=== PATIENT | male | born 1965 | race Caucasian/White ===

== ENCOUNTER 2017-05-04 20:05 | Emergency (ER) | payer BC, OTHER ==
[2017-05-04 20:36] LABS: Hematocrit 41.5 % (42.0-52.0); Hemoglobin 14.5 gm/dL (13.5-18.0); Mean Cell Volume 85.2 fl (78-100); Mean Corpuscular Hemoglobin 29.8 pg (27-31); Mean Corpuscular Hgb Conc 34.9 g/dl (32-36); Mean Platelet Volume 11.3 fl (6.0-9.5); Neutrophil # 4.2 K/mm3 (1.3-6.0); Neutrophil % 60.5 % (42-75.0); Platelet Count 187 K/mm3 (150-450); Red Blood Count 4.87 M/mm3 (4.7-6.0); Red Cell Distribution Width 12.7 % (11.5-14.0)
[2017-05-04 20:40] LABS: Urine Bilirubin Negative (NEGATIVE); Urine Blood Negative /ul (NEGATIVE); Urine Ketone Negative (NEGATIVE); Urine Nitrite Negative (NEGATIVE); Urine Protein Negative (NEGATIVE); Urine Urobilinogen Normal (NORMAL)
[2017-05-04 20:49] LABS: Albumin * 3.7 gm/dl (3.4-5.0); Anion Gap 13.8 mmol/L (6.8-13.8); BUN/Creatinine Ratio 13.6 (9.0-21.6); Bilirubin, Total 0.5 mg/dL (0.0-1.1); Ca. Corrected For Albumin 8.9 mg/dL (8.4-10.2); Carbon Dioxide 28.1 mmol/L (24-32.6); Potassium 3.9 mmol/L (3.4-4.6); Total Protein 7.3 gm/dL (6.2-8.2)
[2017-05-04 20:55] LABS: Urine Appearance Clear; Urine Color Yellow; Urine RBC None Seen /hpf (0-5)
--- OUTSIDE RECORDS SUMMARY | 2017-05-04 20:55 | XMS REPORT | Clinical Summary ---
:1965 Author Organization [employer] [place] [address] Care Team Providers Name Role Phone Unavailable Primary Care Provider Unavailable Source Comments This disclosure is being made pursuant to the [employer] program and maynot contain all information available regarding this patient.[facility] Allergies Active Allergy Reactions Severity Noted Date Comments Penicillins Hives High 01/19/2015 Current Medications Be aware that medications may not be up to date as of this document. Alwaysverify current medications with the patient. Prescription Sig. Disp. Refills Start Date End Date Status METFORMIN HCL PO Take by mouth. Active Active Problems Not on file Social History Tobacco Use Types Packs/Day Years Used Date Never Smoker Smokeless Tobacco: Never Used Alcohol Use Drinks/Week oz/Week Comments Yes social Sex Assigned at Date Recorded Not on file Last Filed Vital Signs Vital Sign Reading Time Taken Blood Pressure 160/107 01/19/2015 4:01 PM CDT Pulse 90 01/19/2015 4:01 PM CDT Temperature 36.4 C (97.5 F) 01/19/2015 3:38 PM CDT Respiratory Rate 16 01/19/2015 4:01 PM CDT Oxygen Saturation 97% 01/19/2015 4:01 PM CDT Inhaled Oxygen Concentration - - Weight 88.9 kg (196 lb) 01/19/2015 3:38 PM CDT Height 193 cm (6' 3.98") 01/19/2015 3:38 PM CDT Body Mass Index 23.87 01/19/2015 3:38 PM CDT Plan of Treatment Health Maintenance Due Date Last Done Comments Tetanus/Pertussis (1 - Tdap) 1985 Colonoscopy 2016 Well Adult Visit 2016 INFLUENZA IMMUNIZATION (#1) 2016 Results Not on filefrom Last 3 Months Insurance Payer Benefit Plan / Subscriber ID Type Phone Address Group WORK[employer] WORKERS [id number] COMPENSATION COMPENSATION JOHN ESTRADA PPO [id number] PPO [phone] [id number] [facility] [address] [place] [address] [facility] [employer] Workers Comp Self Home: [address] [employer] [phone] [place] [address]
[2017-05-04 20:56] LABS: Urine Bacteria TRACE; Urine WBC None Seen /hpf (0-5)
[2017-05-04] MEDS ORDERED: INSULIN REGULAR, HUMAN 100 UNITS/ML VIAL SC ONE ×2 (20:57→22:07)
--- NOTE | 2017-05-04 20:58 | ERNOTE ---
Medical Problem HPI - Narrative Date of Service: 05/04/17 - General Chief Complaint: Diabetes Related Problem Source: patient, family - Immun/Allergies/Home Medications Immunizations: IMMUNIZATION HX Immunizations Up to Date Yes History of Influenza Vaccine No Hx Pneumococcal Vaccination No Allergies/Adverse Reactions: Allergies penicillin V Adverse Reaction (Verified 03/27/16 15:55) Home Medications: HOME MEDICATIONS Acetaminophen [Tylenol] 650 mg PO QID PRN 05/04/17 [Last Taken Unknown] Aspirin 81 mg PO DAILY 05/04/17 [Last Taken Unknown] Atorvastatin Calcium 80 mg PO DAILY 05/04/17 [Last Taken Unknown] Ibuprofen 200 - 400 mg PO QID 05/04/17 [Last Taken Unknown] Insulin Glargine,Hum.rec.anlog [Lantus] 16 units SC DAILY 05/04/17 [Last Taken Unknown] Lisinopril [Prinivil] 10 mg PO DAILY 05/04/17 [Last Taken Unknown] Metoprolol Tartrate [Lopressor] 25 mg PO BID 05/04/17 [Last Taken Unknown] - History of Present History Narrative: 52 year old that was diagnosed with CVA last week and was released from a hospital in [place] yesterday. He has had residual hemiparesis, and dizziness since the CVA. He was prompted to come to the ED tonight due to an elevated glucose level, which has been running in the 300's; the last reading was 308. Complaints of chills, but this has been unchanged since the CVA. Denies any coughing, shortness of breath, chest pain, N/V/D. While in being hospitalized he was started a Lantus. Timing: constant Severity: mild Modifying Factors - (Worsens): Present: other - none Review of Systems - Review of Systems Constitutional: Present: chills - chronic since CVA EYE: Present: see HPI ENT: Present: no symptoms reported Respiratory: Present: no symptoms reported Cardiology: Present: no symptoms reported Gastrointestinal/Abdominal: Present: nausea - occasional since CVA Genitourinary: Present: no symptoms reported Musculoskeletal: Present: no symptoms reported Skin: Present: no symptoms reported Neurological: Present: See HPI Endocrine: Present: no symptoms reported Hematologic/Lymphatic: Present: no symptoms reported Psych: Present: no symptoms reported - Patient's Past Medical History Patient History - Medical: Diabetes Type 2 Patient History - Cardiac/Respiratory: CVA/Stroke Patient History - Cancer: No Hx of Cancer Patient History - Surgical Procedures: Other Patient History - Other: None - Family History Mother Family History - Medical: Diabetes Type 2 Family History - Cardiac/Respiratory: Coronary Heart Disease - Social History Living Situations: home Psych History: No pertinent hx Smoking Status: Never smoker Have you smoked in the past 12 months: No Do you dip or chew tobacco: No Alcohol Use: occasionally Drug Use: none - Immunizations Immunizations Up to Date: Yes Hx Pneumococcal Vaccination: No History of Influenza Vaccine: No Physical Exam - Physical Exam General Appearance: Present: no apparent distress Head Exam: Present: normal inspection Eye Exam: Normal inspection: bilateral Ears, Nose, Throat: Present: normal ENT inspection Neck: Present: normal inspection Respiratory: Present: no respiratory distress Cardiovascular/Chest: Present: regular rate, rhythm Gastrointestinal/Abdominal: Present: nontender Back Exam: Present: normal inspection Extremity Exam: Present: normal inspection Neurological Exam: Present: other - mildly unsteady gait Skin Exam: Present: normal color ED Progress - Results and Orders Patient's Lab Results:: I have reviewed the patient's lab results. - Vital Signs Patient's Vital Signs:: I have reviewed the patient's vital signs. Vital Signs: Vital Signs 05/04/17 05/04/17 05/04/17 20:06 20:16 20:32 Temperature 37.1 C Pulse Rate 78 79 80 Respiratory 16 12 Rate Blood Pressure 170/92 148/83 O2 Sat by Pulse 100 100 Oximetry - Progress/Reassessment Chief Complaint: Diabetes Related Problem Progress:: Improved Departure - Departure Clinical Impression: Diabetes Disposition: Home self-care Condition: Fair Instructions: Insulin Treatment for Diabetes Print Language: Chinese Additional Instructions: Increase your Lantus dose to 18 units per day. Follow up with your physician to continue to fine tune your insulin dosage. Return to the ED if you feel sick, have fevers or extreme thirst.
[2017-05-04] MEDS ORDERED: INSULIN REGULAR, HUMAN 100 UNITS/ML VIAL ONE (21:03)
[2017-05-04 23:07] VITALS: BP 131/89
== END 2017-05-04 22:47 | disposition home or self-care (01) ==
LOC: ER 20:05
DX: E11.9 Type 2 diabetes mellitus without complications (principal); Z79.4 Long term (current) use of insulin

== ENCOUNTER 2020-12-31 21:25 | Inpatient (IN) ==
[2020-12-31] MEDS ORDERED: NITROGLYCERIN 0.4 MG/TAB BTL SL ONE ×3 (21:37→21:46)
[2020-12-31] MEDS ORDERED: ASPIRIN 81 MG TAB.CHEW ONE (21:37)
[2020-12-31] MEDS ORDERED: NORMAL SALINE 500 ML IV ONE (21:40)
[2020-12-31] MEDS ORDERED: ASPIRIN 81 MG TAB.CHEW PO ONE (21:41)
[2020-12-31 21:47] LABS: Hematocrit 40.2 % (42.0-52.0); Hemoglobin 13.2 gm/dL (13.5-18.0); Mean Cell Volume 95.5 fl (78-100); Mean Corpuscular Hemoglobin 31.4 pg (27-31); Mean Corpuscular Hgb Conc 32.8 g/dl (32-36); Neutrophil # 4.9 K/mm3 (1.3-6.0); Neutrophil % 57.7 % (42-75.0); Platelet Count 229 K/mm3 (150-450); Red Blood Count 4.21 M/mm3 (4.7-6.0); Red Cell Distribution Width 13.4 % (11.5-14.0); White Blood Count 8.5 K/mm3 (4.0-10.5)
[2020-12-31] MEDS ORDERED: ALBUTEROL SULFATE/IPRATROPIUM 3 ML NEBU IH ONE (21:59)
[2020-12-31 22:02] LABS: INR 1.12 INR (0.92-1.08); Partial Thrombolplastin Time 27.5 Seconds (24-32); Prothrombin Time (Patient) 11.6 Seconds (9.1-10.7)
[2020-12-31 22:07] LABS: ALT 35 U/L (19-67); Albumin * 3.5 gm/dl (3.4-5.0); Alkaline Phosphatase * 124 U/L (50-170); Anion Gap 20.3 mmol/L (6.8-13.8); BUN/Creatinine Ratio 7.3 (9.0-21.6); Bilirubin, Total 1.2 mg/dL (0.0-1.1); Blood Urea Nitrogen 11 mg/dL (6-23); Ca. Corrected For Albumin 8.4 mg/dL (8.4-10.2); Calcium * 8.3 mg/dL (7.9-10.9); Carbon Dioxide 16.9 mmol/L (24-32.6); Chloride 85 mmol/L (97-106); Glucose * 429 mg/dL (70-110); Potassium 4.2 mmol/L (3.4-4.6)
[2020-12-31 22:18] LABS: Sodium 118 mmol/L (132-142); Troponin I 0.069 ng/mL (0.00-0.10)
[2020-12-31] MEDS ORDERED: PANTOPRAZOLE SODIUM 40 MG/100 ML PIGGYBACK IV ONE (22:36)
--- NOTE | 2020-12-31 22:36 | ERNOTE ---
Dyspnea - Date Date of Service: 12/31/20 - General Presenting Symptoms: shortness of breath, difficulty of breathing, wheezing Time Seen by Provider: 12/31/20 22:18 Source: patient, family Exam Limitations: no limitations - Immun/Allergies/Home Medications Immunizations: IMMUNIZATION HX Immunizations Up to Date Yes History of Influenza Vaccine No Hx Pneumococcal Vaccination No Allergies/Adverse Reactions: Allergies penicillin V Adverse Reaction (Unknown, Verified 12/31/20 21:26) unknown Home Medications: HOME MEDICATIONS Acetaminophen [Tylenol] 650 mg PO QID PRN 05/04/17 [Last Taken Unknown] Ibuprofen 200 - 400 mg PO QID 05/04/17 [Last Taken Unknown] alcohol swabs See Rx Instructions TP .COMPLEX #200 ea 05/21/18 [Last Taken Unknown] aspirin 81 mg chewable tablet 81 mg PO DAILY #90 tab 05/21/18 [Last Taken Unknown] blood-glucose meter See Dose Instructions .ROUTE .MEDSUPPLY #1 ea 05/21/18 [Last Taken Unknown] lancets 28 gauge See Dose Instructions .ROUTE .MEDSUPPLY #200 ea 05/21/18 [Last Taken Unknown] insulin glargine 100 unit/mL subcutaneous solution 15 unit SUBCUT DAILY #10 ml 04/17/20 [Last Taken Unknown] metformin 500 mg tablet 500 mg PO DAILY #180 tab 04/20/20 [Last Taken Unknown] Naproxen Sodium 550 mg PO BID #30 tab 06/11/20 [Last Taken Unknown] metoprolol tartrate 25 mg tablet 25 mg PO BID #180 tab 08/10/20 [Last Taken Unknown] blood sugar diagnostic See Rx Instructions .ROUTE .COMPLEX #100 unknown measurement unit code: strip 11/04/20 [Last Taken Unknown] lisinopril 10 mg tablet 10 mg PO DAILY #90 tab 11/04/20 [Last Taken Unknown] atorvastatin 10 mg tablet 10 mg PO DAILY #90 tab 12/16/20 [Last Taken Unknown] gabapentin 400 mg capsule 400 mg PO TID #180 cap 12/16/20 [Last Taken Unknown] insulin syringe-needle U-100 1 mL 31 gauge x 5/16" See Dose Instructions .ROUTE .MEDSUPPLY #100 ea 12/16/20 [Last Taken Unknown] silver sulfadiazine 1 % topical cream 1 applic TP DAILY #25 g 12/28/20 [Last Taken Unknown] - Pain Score Pain Score #1 Pain Score: 6 - History of Present Illness Narrative: Patient is 55-year-old male present to our emergency room accompanied by his significant other ambulatory with chief complaint of acute shortness of breath, difficulty breathing, left-sided chest pain started about couple hours ago. Patient past medical history significant for unspecified controlled diabetes, severe alcoholism, protein calorie malnutrition, history of CVA about 4 years ago with no intervention other than angiography. Patient currently takes Metformin and uses insulin for diabetes. Patient does not remember the last hemoglobin A1c and last blood sugar check was this morning 82 per patient. Patient reports about 2 hours ago he was in bar with his significant other but did not drink any alcoholic beverages. He reports that he usually drinks about 12-18 tall boy beers. He considers himself as an alcoholic. He gets home after doing some groceries with his and suddenly started having some left upper chest pain which reports the pain intensity about 6 or 7 out of 10 and the pattern is sharp pain. Patient pain does not radiate to back or jaw or the left upper extremity. Patient denies any nausea vomiting vision change headache. Patient reports some dizziness. Patient reports that he did not have any contact with any Covid positive patients and has not been diagnosed with any up respiratory infection last 2 weeks. Patient reports the breathing got significantly deteriorated in the last 2 hours and started having some cough with some yellowish-greenish discharges. Patient saturation at the time of being seen was 73% in room air patient was gasping for air and coarse crackles all over the lung space. Initial critical care done by nursing staff and patient significantly stabilized after about 5 minutes. Patient is on 6 L of oxygen. EKG done, ACS protocol initiated and patient received aspirin and sublingual nitro. Patient reports the pain intensity came down after second dose of nitro to 2 out of 10. Chest x-ray has been done and EKG visualized and the report by ED provider. EKG did not show any ST-T changes but random PVCs with ventricular block patient had junctional tachycardia and left bundle branch block previously. Other than tachycardia there is no other finding. Chest x-ray reported by ED doctor. Patient has generalized opacities with mild bilateral costophrenic haziness in favor of pleural effusion. Patient cardiac silhouette is normal patient does not have any tracheal deviation. The findings are in favor of severe pneumonia most likely COVID-19. 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 Diabetes Onset Date: ~2007 Hyperlipidemia Onset Date: ~2013 LDL-115 Hypertension Onset Date: Unknown Rib lesion Onset Date: Unknown with pain Subluxation of shoulder joint Onset Date: ~03/20/17 Dislocation of right shoulder 1984 Surgical History: Surgical History (Last Reviewed 12/31/20 @ 21:35 by Remedios Orona RN) History of hip surgery Onset Date: ~2003 Right hip "pinning", Dr Banks H/O knee surgery Onset Date: ~1983 Left H/O shoulder surgery Onset Date: ~1984 Right shoulder Hematoma Onset Date: ~2003 Patient states he fell through a roof and developed a hematoma in his right upper leg that he ended up having surgery on with Dr Licea at [facility] to "relieve pressure". He states that he saw the wound clinic for packing and hyperbaric treatment post-op S/P wrist surgery Onset Date: ~1987 Left wrist [facility] Family History: Family History (Last Reviewed 12/31/20 @ 21:35 by Remedios Orona RN) Father , age 93, septicemia No problems noted. Mother , age 70 Diabetes Heart problem Social History: (Last Updated 12/31/20 @ 21:35 by Remedios Ornoa RN) Social History: Marital status: lives independently: No household members: spouse current occupational status: employed current occupation: foundry laborer [employer] Service: No Tobacco: Smoking Status: Never smoker Alcohol: alcohol intake: current Alcohol type: beer alcohol intake frequency: 3 or more drinks per day Substance Use: substance use type: does not use Dietary Habits: caffeine: Yes Physical Exam - Physical Exam General Appearance: Present: wd/wn, alert, severe distress, thin Head Exam: Present: normal inspection, no evidence of injury Eye Exam: Normal inspection: bilateral, PERRL: bilateral, EOMI: bilateral Ears, Nose, Throat: Present: normal ENT inspection, normal pharynx Neck: Present: normal inspection, nontender Respiratory: Present: chest tenderness, respiratory distress, accessory muscle use, crackles, rhonchi - Patient has generalized bilateral coarse crackles all over the lungs.. Absent: no respiratory distress, normal breath sounds, no accessory muscle use, chest nontender, lungs clear, decreased breath sounds, expiration (prolonged) Cardiovascular/Chest: Present: normal peripheral pulses - Patient does not have any asymmetry in peripheral pulses., tachycardia Peripheral Pulses: N=norm/S=strong/W=weak/B=bound/A=absent: Carotid (R): Normal, Carotid (L): Normal, Radial (R): Normal, Radial (L): Normal, Femoral (R): Normal, Femoral (L): Normal, Dorsalis-pedis (R): Normal, Dorsalis-pedis (L): Normal Gastrointestinal/Abdominal: Present: normal bowel sounds, nontender, nondistended, soft, no organomegaly Extremity Exam: Present: normal inspection, non-tender, normal range of motion, no edema Neurological Exam: Present: alert, oriented, normal mood/affect, no m otor/sensory deficits Skin Exam: Present: cool/dry, pallor Lymphatic Exam: Present: no adenopathy Progress - Date and Time Seen: Date and Time: 12/31/20 22:34 Patient evaluated after initial critical care. Patient significantly improved heart rate came down from 148 205, respiratory rate came down from 48-18, saturation came down up from 91 in 6 L of oxygen to 95. Severity of the case discussed with the patient and significant other they both verbalized understanding agreed to the plan Asked questions about patient's CODE STATUS patient will be full code patient per patient request We got critical results back for sodium 118 we are starting algorithm and protocol for hyponatremia as patient is symptomatic. Starting infusion of bolus 100 cc of 3% saline and will check sodium in 1 hour. 12/31/20 23:11 I corrected sodium based on the glucose and a corrected to 123. Patient will receive 50 cc instead of 100 cc of 3% saline. We will recheck the sodium at midnight 12/31/20 23:49 Patient did stabilize significantly vitals are regular normal limits patient is resting comfortably. Patient will be admitted for acute respiratory failure due to acute pneumonia and moderate hyponatremia - Vital Signs Vital Signs: Vital Signs 12/31/20 21:25 12/31/20 21:48 12/31/20 21:49 Temperature 35.7 C L Pulse Rate 144 H 127 H 126 H Respiratory Rate 37 H 37 H Blood Pressure 168/105 H 167/107 H O2 Sat by Pulse Oximetry 73 L 88 L 12/31/20 22:02 12/31/20 22:07 12/31/20 22:13 Temperature Pulse Rate 124 H 123 H 121 H Respiratory Rate 37 H 30 H 34 H Blood Pressure 143/96 H O2 Sat by Pulse Oximetry 93 93 12/31/20 22:19 Temperature Pulse Rate 116 H Respiratory Rate 35 H Blood Pressure 149/94 H O2 Sat by Pulse Oximetry 94 - Progress/Reassessment Chief Complaint: Dyspnea - Transfer of Care Pending Results: X-ray results - Chest x-ray reported by ED doctor. Patient has generalized opacities with mild bilateral costophrenic haziness in favor of pleural effusion. Patient cardiac silhouette is normal patient does not have any tracheal deviation. Plan - Plan Plan: Admit to the inpatient for acute pneumonia and moderate hyponatremia. Departure Clinical Impression: Acute pneumonia, Acute respiratory failure with hypoxia and hypercapnia, Chronic renal failure, stage 3b, Chronic hyponatremia - Departure Disposition: Still a patient Condition: Stable Referrals: Sandy Pickens MD [Primary Care Provider] -
[2020-12-31] MEDS: SODIUM CHLORIDE 3 % 500 ML IV SCH (22:40)
[2020-12-31 22:41] LABS: AST 37 U/L (0-48); BNP * 2116 pg/mL (5-140); Total Protein 7.2 gm/dL (6.2-8.2)
[2020-12-31 22:53] LABS: Magnesium 1.6 mg/dL (1.2-2.8)
[2020-12-31] MEDS ORDERED: cefTRIAXone SODIUM 1,000 MG/100 ML BAG IV ONE (23:43)
[2020-12-31] MEDS ORDERED: AZITHROMYCIN 250 MG TABLET ONE (23:50)
[2020-12-31] MEDS: AZITHROMYCIN 250 MG TABLET PO SCH (23:52)
[2021-01-01] MEDS: SODIUM CHLORIDE 3 % 500 ML IV SCH (00:04)
[2021-01-01] MEDS ORDERED: SODIUM CHLORIDE 3 % 500 ML IV SCH (00:15)
[2021-01-01] MEDS ORDERED: NORMAL SALINE 1,000 ML IV PRN (01:31)
[2021-01-01 03:49] LABS: Urine Bilirubin Negative (NEGATIVE); Urine Blood Negative /ul (NEGATIVE); Urine Ketone Negative (NEGATIVE); Urine Nitrite Negative (NEGATIVE); Urine Protein Negative (NEGATIVE); Urine Specific Gravity 1.015 SP.GR. (1.005-1.030); Urine Urobilinogen Normal (NORMAL)
[2021-01-01 03:54] LABS: Urine Appearance Clear (CLEAR); Urine Color Yellow
[2021-01-01 03:55] LABS: Urine Bacteria None Seen; Urine RBC None Seen /hpf (0-5); Urine WBC None Seen /hpf (0-5)
[2021-01-01 03:58] LABS: Cocaine Ur Negative (NEGATIVE); Urine Barbiturate Negative (NEGATIVE); Urine Benzodiazepines Negative (NEGATIVE); Urine Opiates Negative (NEGATIVE); Urine PCP Negative (NEGATIVE); Urine THC Negative (NEGATIVE)
[2021-01-01 08:27] LABS: Anion Gap 14.7 mmol/L (6.8-13.8); BUN/Creatinine Ratio 7.7 (9.0-21.6); Calcium * 8.2 mg/dL (7.9-10.9); Carbon Dioxide 23.5 mmol/L (24-32.6); Estimated Creat Clear 88.6; Potassium 4.2 mmol/L (3.4-4.6)
[2021-01-01] MEDS ORDERED: FUROSEMIDE 10 MG/ML VIAL IV ONE (08:43)
[2021-01-01] MEDS ORDERED: MORPHINE SULFATE 2 MG/ML DISP.SYRIN IV ONE (08:48)
[2021-01-01] MEDS ORDERED: INSULIN GLARGINE,HUM.REC.ANLOG 100 UNITS/ML VIAL SC SCH (09:00)
[2021-01-01] MEDS: hydrALAZINE HCL 20 MG/ML VIAL IV PRN (09:33)
[2021-01-01] MEDS: metFORMIN HCL 500 MG TABLET PO SCH (09:50)
[2021-01-01] MEDS: METOPROLOL TARTRATE 25 MG TABLET PO SCH ×2 (09:50→20:55)
[2021-01-01] MEDS: AZITHROMYCIN 250 MG TABLET PO SCH (09:50)
[2021-01-01] MEDS: LISINOPRIL 10 MG TABLET PO SCH (09:50)
[2021-01-01] MEDS: GABAPENTIN 400 MG CAPSULE PO SCH ×3 (09:50→17:22)
[2021-01-01] MEDS: HEPARIN SODIUM,PORCINE 5,000 UNITS/ML VIAL SC SCH ×2 (09:51→20:55)
[2021-01-01] MEDS ORDERED: INSULIN LISPRO 100 UNITS/ML VIAL SC ONE (12:45)
--- NOTE | 2021-01-01 13:24 | HP ---
Chief Complaint - Chief Complaint Date of Service: 01/01/21 Time of Service: 08:45 Chief Complaint: Hyponatremia, hypoxia with shortness of breath and cough, chronic alcoholism History of Present Illness: 55-year-old male with history of diabetes, hyperlipidemia, hypertension, and chronic alcoholism presented to the ER with acute onset shortness of breath and cough as well as some chest pain. Patient was started on supplemental oxygen, given aspirin, and nitro. Chest pain improved as well as breathing after being on 6 L nasal cannula. X-ray showed generalized opacities with mild bilateral costophrenic haziness consistent with pneumonitis with possible effusion. White blood cell count was within normal limits. Patient lactic acid was elevated at 10.9. Patient was given fluids and it dropped down to 2.5. EKG showed no acute cardiopulmonary changes. A troponin was not obtained. Patient was started on Rocephin and azithromycin for possible pneumonia. The other concerning factor was patient's sodium was 118 upon admission. Patient is a chronic alcoholic and this is likely a chronic issue for him. Patient was started on normal saline as well as bolused with 3% saline. Sodium corrected from 118-124 and 8 hours. Patient's breathing was stabilized in the ER and he was no longer requiring supplemental oxygen to maintain sats in the mid to upper 90s. Patient was admitted due to possible pneumonia versus pneumonitis as well as hyponatremia. When evaluated this morning, patient went into acute respiratory distress and appeared to be fluid overloaded on exam. His lung sounded wet and he was requiring 10 L via oxygen mask to maintain sats in the 90s. Patient was anxious and was tachycardic in the 120s 130s. Fluids were stopped and patient was given a dose of Lasix with repeat chest x-ray. It did show some vascular congestion compared to the previous x-ray but otherwise was unchanged. Patient diuresed close to 1700 cc in 3 hours and his breathing returned to normal. Patient also received a dose of morphine during his respiratory distress which helped calm his breathing. Upon reevaluation this afternoon patient was more comfortable and his vital signs are stable. Blood pressure returned to normal. He was in a regular rate and rhythm. He was maintaining sats on room air. Patient was restarted on normal saline at 125 an hour with sodium tablets to be given nightly. Patient is also diabetic and had elevated sugars and again this afternoon. Sliding scale was started for him. His sodium corrected to be closer to 124 125 with his sugars in the 121. 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 Diabetes Onset Date: ~2007 Hyperlipidemia Onset Date: ~2013 LDL-115 Hypertension Onset Date: Unknown Rib lesion Onset Date: Unknown with pain Subluxation of shoulder joint Onset Date: ~03/20/17 Dislocation of right shoulder 1984 Surgical History: Surgical History (Last Reviewed 12/31/20 @ 21:35 by Remedios Orona RN) History of hip surgery Onset Date: ~2003 Right hip "pinning", Dr Banks H/O knee surgery Onset Date: ~1983 Left H/O shoulder surgery Onset Date: ~1984 Right shoulder Hematoma Onset Date: ~2003 Patient states he fell through a roof and developed a hematoma in his right upper leg that he ended up having surgery on with Dr Licea at [facility] to "relieve pressure". He states that he saw the wound clinic for packing and hyperbaric treatment post-op S/P wrist surgery Onset Date: ~1987 Left wrist [facility] Family History: Family History (Last Reviewed 12/31/20 @ 21:35 by Remedios Orona RN) Father , age 93, septicemia No problems noted. Mother , age 70 Diabetes Heart problem Social History: (Last Updated 01/01/21 @ 13:37 by Karlene Guzmán DPM) Social History: Marital status: lives independently: No household members: spouse current occupational status: employed current occupation: livestock laborer Opality Service: No Tobacco: Smoking Status: Never smoker Alcohol: alcohol intake: current Alcohol type: beer alcohol intake frequency: 3 or more drinks per day Substance Use: substance use type: does not use Dietary Habits: caffeine: Yes Review Of Systems (GEN) - Review of Systems Generalized/Overall Review: Present: Fatigue. Absent: Weakness, Chills, Fever EENTM: Present: No Symptoms Reported Respiratory: Present: Cough, Shortness of Breath, Wheezing Cardiac: Absent: Chest Pain, Edema, Palpitations Abdominal: Present: No Symptoms Reported Genitourinary: Present: No Symptoms Reported Musculoskeletal: Present: No Symptoms Reported Neurological: Present: No Symptoms Reported Skin: Present: Dryness Endocrine: Present: No Symptoms Reported, Increased Thirst Immunizations: IMMUNIZATION HX Immunizations Up to Date Yes History of Influenza Vaccine No Hx Pneumococcal Vaccination No Allergies/Adverse Reactions: Allergies Allergy/AdvReac Type Severity Reaction Status Date / Time penicillin V AdvReac Unknown unknown Verified 12/31/20 21:26 Home Medications: HOME MEDICATIONS Acetaminophen [Tylenol] 650 mg PO QID PRN 05/04/17 [Last Taken Unknown] Ibuprofen 200 - 400 mg PO QID 05/04/17 [Last Taken Unknown] alcohol swabs See Rx Instructions TP .COMPLEX #200 ea 05/21/18 [Last Taken Unknown] aspirin 81 mg chewable tablet 81 mg PO DAILY #90 tab 05/21/18 [Last Taken Unknown] blood-glucose meter See Dose Instructions .ROUTE .MEDSUPPLY #1 ea 05/21/18 [Last Taken Unknown] lancets 28 gauge See Dose Instructions .ROUTE .MEDSUPPLY #200 ea 05/21/18 [Last Taken Unknown] insulin glargine 100 unit/mL subcutaneous solution 15 unit SUBCUT DAILY #10 ml 04/17/20 [Last Taken Unknown] metformin 500 mg tablet 500 mg PO DAILY #180 tab 04/20/20 [Last Taken Unknown] Naproxen Sodium 550 mg PO BID #30 tab 06/11/20 [Last Taken Unknown] metoprolol tartrate 25 mg tablet 25 mg PO BID #180 tab 08/10/20 [Last Taken Unknown] blood sugar diagnostic See Rx Instructions .ROUTE .COMPLEX #100 unknown measurement unit code: strip 11/04/20 [Last Taken Unknown] lisinopril 10 mg tablet 10 mg PO DAILY #90 tab 11/04/20 [Last Taken Unknown] atorvastatin 10 mg tablet 10 mg PO DAILY #90 tab 12/16/20 [Last Taken Unknown] gabapentin 400 mg capsule 400 mg PO TID #180 cap 12/16/20 [Last Taken Unknown] insulin syringe-needle U-100 1 mL 31 gauge x 02/14" See Dose Instructions .ROUTE .MEDSUPPLY #100 ea 12/16/20 [Last Taken Unknown] silver sulfadiazine 1 % topical cream 1 applic TP DAILY #25 g 12/28/20 [Last Taken Unknown] Exam - Exam Vital Signs: Vital Signs - Last Taken Temp 37.0 C 01/01/21 10:07 Pulse 110 H 01/01/21 11:09 Resp 32 H 01/01/21 11:09 BP 141/77 H 01/01/21 11:09 Pulse Ox 100 01/01/21 12:31 Constitutional: Present: Alert, Oriented x3, Moderate distress - Respiratory distress ENT Exam: Present: hearing grossly normal, dry mucous membranes. Absent: nasal congestion, nasal drainage Eye Exam: bilateral eye: normal inspection, EOMI Neck: Present: non-tender, supple Respiratory: Present: no accessory muscle use, crackles - Diffuse bilaterally, other - Tachypnea Cardiovascular/Chest: Present: no murmur, tachycardia Peripheral Pulses: dorsalis-pedis (R): 2+, dorsalis-pedis (L): 2+ Abdomen: Present: soft, nontender, nondistended, other - Central obesity Extremity: Present: non-tender, other - Arms and legs thin compared to central obesity, semicachectic in appearance Skin Exam: Present: cool/dry, other - Flaky skin on his lower extremities. telangiectasia on face and chest Appearance: Present: disheveled, impaired insight Eye contact: Present: cooperative, good eye contact Thoughts: Present: normal thought pattern, normal mood /affect - Anxious, appropriate for the situation Diagnostic Studies: Abnormal Lab Results 12/31/20 12/31/20 12/31/20 Range/Units 21:40 21:40 21:40 RBC 4.21 L (4.7-6.0) M/mm3 Hgb 13.2 L (13.5-18.0) gm/dL Hct 40.2 L (42.0-52.0) % MCH 31.4 H (27-31) pg Immature Gran % (Auto) 0.60 H (0.001-0.429) % Immature Gran # (Auto) 0.05 H (0.000-0.0310) K/mm3 Eosinophils % 5.2 H (0.0-3.0) % Basophils % 2.5 H (0.0-1.0) % Absolute Basophils 0.2 H (0.0-0.1) k/mm3 PT (9.1-10.7) Seconds INR (Anticoag Therapy) (0.92-1.08) INR pO2 (83.0-108.0) mmHg HCO3 (21.0-28.0) mmol/L Total CO2 (19.0-24.0) mmol/L Base Excess (-2.0-3.0) mmol/L ABG pH (7.35-7.45) ABG O2 Sat (Measured) (94.0-98.0) % Sodium 118 L* D (132-142) mmol/L Plasma Sodium 123 L (130-142) mmol/L Chloride 85 L (97-106) mmol/L Carbon Dioxide 16.9 L (24-32.6) mmol/L Anion Gap 20.3 H (6.8-13.8) mmol/L Creatinine 1.50 H D (0.4-1.4) mg/dL Est GFR (Non-Af Amer) 52 L D (60-130) mL/min BUN/Creatinine Ratio 7.3 L (9.0-21.6) Random Glucose 429 H (70-110) mg/dL Lactic Acid, Venous 10.9 H* (0.4-2.0) mmol/L Total Bilirubin 1.2 H (0.0-1.1) mg/dL B-Natriuretic Peptide 2116 H (5-140) pg/mL Urine Glucose (UA) (NEGATIVE) mg/dL Ur Random Sodium (20-110) mmol/L 12/31/20 12/31/20 12/31/20 Range/Units 21:40 21:44 23:43 RBC (4.7-6.0) M/mm3 Hgb (13.5-18.0) gm/dL Hct (42.0-52.0) % MCH (27-31) pg Immature Gran % (Auto) (0.001-0.429) % Immature Gran # (Auto) (0.000-0.0310) K/mm3 Eosinophils % (0.0-3.0) % Basophils % (0.0-1.0) % Absolute Basophils (0.0-0.1) k/mm3 PT 11.6 H (9.1-10.7) Seconds INR (Anticoag Therapy) 1.12 H (0.92-1.08) INR pO2 58.8 L (83.0-108.0) mmHg HCO3 13.6 L (21.0-28.0) mmol/L Total CO2 14.7 L (19.0-24.0) mmol/L Base Excess -13.3 L (-2.0-3.0) mmol/L ABG pH 7.21 L (7.35-7.45) ABG O2 Sat (Measured) 85.0 L (94.0-98.0) % Sodium 118 L* (132-142) mmol/L Plasma Sodium (130-142) mmol/L Chloride (97-106) mmol/L Carbon Dioxide (24-32.6) mmol/L Anion Gap (6.8-13.8) mmol/L Creatinine (0.4-1.4) mg/dL Est GFR (Non-Af Amer) (60-130) mL/min BUN/Creatinine Ratio (9.0-21.6) Random Glucose (70-110) mg/dL Lactic Acid, Venous (0.4-2.0) mmol/L Total Bilirubin (0.0-1.1) mg/dL B-Natriuretic Peptide (5-140) pg/mL Urine Glucose (UA) (NEGATIVE) mg/dL Ur Random Sodium (20-110) mmol/L 01/01/21 01/01/21 01/01/21 Range/Units 01:10 01:10 03:30 RBC (4.7-6.0) M/mm3 Hgb (13.5-18.0) gm/dL Hct (42.0-52.0) % MCH (27-31) pg Immature Gran % (Auto) (0.001-0.429) % Immature Gran # (Auto) (0.000-0.0310) K/mm3 Eosinophils % (0.0-3.0) % Basophils % (0.0-1.0) % Absolute Basophils (0.0-0.1) k/mm3 PT (9.1-10.7) Seconds INR (Anticoag Therapy) (0.92-1.08) INR pO2 (83.0-108.0) mmHg HCO3 (21.0-28.0) mmol/L Total CO2 (19.0-24.0) mmol/L Base Excess (-2.0-3.0) mmol/L ABG pH (7.35-7.45) ABG O2 Sat (Measured) (94.0-98.0) % Sodium 120 L (132-142) mmol/L Plasma Sodium (130-142) mmol/L Chloride (97-106) mmol/L Carbon Dioxide (24-32.6) mmol/L Anion Gap (6.8-13.8) mmol/L Creatinine (0.4-1.4) mg/dL Est GFR (Non-Af Amer) (60-130) mL/min BUN/Creatinine Ratio (9.0-21.6) Random Glucose (70-110) mg/dL Lactic Acid, Venous 2.5 H* (0.4-2.0) mmol/L Total Bilirubin (0.0-1.1) mg/dL B-Natriuretic Peptide (5-140) pg/mL Urine Glucose (UA) (NEGATIVE) mg/dL Ur Random Sodium 17 L (20-110) mmol/L 01/01/21 01/01/21 Range/Units 03:30 08:02 RBC (4.7-6.0) M/mm3 Hgb (13.5-18.0) gm/dL Hct (42.0-52.0) % MCH (27-31) pg Immature Gran % (Auto) (0.001-0.429) % Immature Gran # (Auto) (0.000-0.0310) K/mm3 Eosinophils % (0.0-3.0) % Basophils % (0.0-1.0) % Absolute Basophils (0.0-0.1) k/mm3 PT (9.1-10.7) Seconds INR (Anticoag Therapy) (0.92-1.08) INR pO2 (83.0-108.0) mmHg HCO3 (21.0-28.0) mmol/L Total CO2 (19.0-24.0) mmol/L Base Excess (-2.0-3.0) mmol/L ABG pH (7.35-7.45) ABG O2 Sat (Measured) (94.0-98.0) % Sodium 124 L (132-142) mmol/L Plasma Sodium 127 L (130-142) mmol/L Chloride 90 L (97-106) mmol/L Carbon Dioxide 23.5 L (24-32.6) mmol/L Anion Gap 14.7 H (6.8-13.8) mmol/L Creatinine (0.4-1.4) mg/dL Est GFR (Non-Af Amer) (60-130) mL/min BUN/Creatinine Ratio 7.7 L (9.0-21.6) Random Glucose 259 H D (70-110) mg/dL Lactic Acid, Venous (0.4-2.0) mmol/L Total Bilirubin (0.0-1.1) mg/dL B-Natriuretic Peptide (5-140) pg/mL Urine Glucose (UA) >=1000 H (NEGATIVE) mg/dL Ur Random Sodium (20-110) mmol/L Laboratory Results WBC 8.5 K/mm3 (4.0-10.5) 12/31/20 21:40 RBC 4.21 M/mm3 (4.7-6.0) L 12/31/20 21:40 Hgb 13.2 gm/dL (13.5-18.0) L 12/31/20 21:40 Hct 40.2 % (42.0-52.0) L 12/31/20 21:40 MCV 95.5 fl (78-100) 12/31/20 21:40 MCH 31.4 pg (27-31) H 12/31/20 21:40 MCHC 32.8 g/dl (32-36) 12/31/20 21:40 RDW 13.4 % (11.5-14.0) 12/31/20 21:40 Plt Count 229 K/mm3 (150-450) 12/31/20 21:40 MPV 11.0 fl (8-11.3) 12/31/20 21:40 Immature Gran % (Auto) 0.60 % (0.001-0.429) H 12/31/20 21:40 Immature Gran # (Auto) 0.05 K/mm3 (0.000-0.0310) H 12/31/20 21:40 Neutrophils % 57.7 % (42-75.0) 12/31/20 21:40 Lymphocytes % 25.6 % (20-51) 12/31/20 21:40 Monocytes % 8.4 % (0.0-9) 12/31/20 21:40 Eosinophils % 5.2 % (0.0-3.0) H 12/31/20 21:40 Basophils % 2.5 % (0.0-1.0) H 12/31/20 21:40 Nucleated RBC % 0.0 k/mm3 (0-1) 12/31/20 21:40 Neutrophils # 4.9 K/mm3 (1.3-6.0) 12/31/20 21:40 Lymphocytes # 2.16 k/mm3 (1.5-3.5) 12/31/20 21:40 Monocytes # 0.7 k/mm3 (0.0-1.0) 12/31/20 21:40 Eosinophils # 0.4 k/mm3 (0.0-0.7) 12/31/20 21:40 Absolute Basophils 0.2 k/mm3 (0.0-0.1) H 12/31/20 21:40 PT 11.6 Seconds (9.1-10.7) H 12/31/20 21:40 INR (Anticoag Therapy) 1.12 INR (0.92-1.08) H 12/31/20 21:40 PTT ([place]oses[place]) 27.5 Seconds (24-32) 12/31/20 21:40 pCO2 35.1 mmHg (35.0-48.0) 12/31/20 21:44 pO2 58.8 mmHg (83.0-108.0) L 12/31/20 21:44 HCO3 13.6 mmol/L (21.0-28.0) L 12/31/20 21:44 Total CO2 14.7 mmol/L (19.0-24.0) L 12/31/20 21:44 Base Excess -13.3 mmol/L (-2.0-3.0) L 12/31/20 21:44 ABG pH 7.21 (7.35-7.45) L 12/31/20 21:44 ABG O2 Sat (Measured) 85.0 % (94.0-98.0) L 12/31/20 21:44 Sodium 124 mmol/L (132-142) L 01/01/21 08:02 Plasma Sodium 127 mmol/L (130-142) L 01/01/21 08:02 Potassium 4.2 mmol/L (3.4-4.6) 01/01/21 08:02 Chloride 90 mmol/L (97-106) L 01/01/21 08:02 Carbon Dioxide 23.5 mmol/L (24-32.6) L 01/01/21 08:02 Anion Gap 14.7 mmol/L (6.8-13.8) H 01/01/21 08:02 BUN 9 mg/dL (6-23) 01/01/21 08:02 Creatinine 1.17 mg/dL (0.4-1.4) 01/01/21 08:02 Est GFR (Non-Af Amer) 69 mL/min (60-130) D 01/01/21 08:02 BUN/Creatinine Ratio 7.7 (9.0-21.6) L 01/01/21 08:02 Random Glucose 259 mg/dL (70-110) H D 01/01/21 08:02 Lactic Acid, Venous 2.5 mmol/L (0.4-2.0) H* 01/01/21 01:10 Calcium 8.2 mg/dL (7.9-10.9) 01/01/21 08:02 Calcium Adj for Albumin 8.4 mg/dL (8.4-10.2) 12/31/20 21:40 Magnesium 1.6 mg/dL (1.2-2.8) 12/31/20 21:40 Total Bilirubin 1.2 mg/dL (0.0-1.1) H 12/31/20 21:40 AST 37 U/L (0-48) 12/31/20 21:40 ALT 35 U/L (19-67) 12/31/20 21:40 Alkaline Phosphatase 124 U/L (50-170) 12/31/20 21:40 Troponin I 0.069 ng/mL (0.00-0.10) 12/31/20 21:40 B-Natriuretic Peptide 2116 pg/mL (5-140) H 12/31/20 21:40 Total Protein 7.2 gm/dL (6.2-8.2) 12/31/20 21:40 Albumin 3.5 gm/dl (3.4-5.0) 12/31/20 21:40 TSH (Reflex) 2.221 uIU/mL (0.358-3.74) 12/31/20 21:40 Urine Color Yellow 01/01/21 03:30 Urine Appearance Clear (CLEAR) 01/01/21 03:30 Urine pH 6.0 pH (5.0-7.0) 01/01/21 03:30 Ur Specific [place] 1.015 SP.GR. (1.005-1.030) 01/01/21 03:30 Urine Protein Negative mg/dL (NEGATIVE) 01/01/21 03:30 Urine Glucose (UA) >=1000 mg/dL (NEGATIVE) H 01/01/21 03:30 Urine Ketones Negative mg/dL (NEGATIVE) 01/01/21 03:30 Urine Blood Negative /ul (NEGATIVE) 01/01/21 03:30 Urine Nitrate Negative (NEGATIVE) 01/01/21 03:30 Urine Bilirubin Negative mg/dl (NEGATIVE) 01/01/21 03:30 Urine Urobilinogen Normal EU/dl (NORMAL) 01/01/21 03:30 Ur Leukocyte Esterase Negative /ul (NEGATIVE) 01/01/21 03:30 Urine RBC None seen /hpf (0-5) 01/01/21 03:30 Urine WBC None seen /hpf (0-5) 01/01/21 03:30 Ur Epithelial Cells None seen /hpf (0-5) 01/01/21 03:30 Urine Bacteria None seen (NONE) 01/01/21 03:30 Urine Culture Comments No culture indicated 01/01/21 03:30 Ur Random Sodium 17 mmol/L (20-110) L 01/01/21 03:30 Urine Opiates Screen Negative (NEGATIVE) 01/01/21 03:30 Barbiturate Screen Negative (NEGATIVE) 01/01/21 03:30 Ur Phencyclidine Scrn Negative (NEGATIVE) 01/01/21 03:30 Urine Amphetamine Negative (NEGATIVE) 01/01/21 03:30 U Benzodiazepines Scrn Negative (NEGATIVE) 01/01/21 03:30 Urine Cocaine Screen Negative (NEGATIVE) 01/01/21 03:30 Urine Marijuana (THC) Negative (NEGATIVE) 01/01/21 03:30 Ethyl Alcohol Less than 3.0 mg/dL (0.0-10.0) 12/31/20 21:40 SARS-CoV-2 (PCR) Not detected (NotDetected) 12/31/20 21:59 Assessment/Plan - Narrative Narrative: Upon initial evaluation patient was acutely distressed with his breathing. Required oxygen mask at 10 L to maintain sats in the low 90s. Patient was given a dose of IV Lasix and diuresed significantly, his breathing improved. Patient also received a low-dose morphine to help calm his breathing which worked well. Repeat chest x-ray showed some vascular congestion compared to previous but not severe nature. Lungs coarse upon initial evaluation. Patient sodium had corrected quite a bit in the first 8 hours, discontinued hypertonic saline. Once he diuresed and was breathing better, will restart his normal saline 125 an hour. We will add sodium tablets to be taken daily with repeat BMP in the morning. Repeat BMP this evening. CBC fairly unremarkable though he is mildly anemic at 13.2/40.2. Only 1 BNP on file which was at 2116. His total protein albumin were better than anticipated. Lactic acid initially 10.9 which came down to 2.5 after fluids. Procalcitonin was ordered 17 which came back at 1.48 indicating that this was likely either a fairly inflamed pneumonitis versus multifocal pneumonia. We will continue him on Rocephin and azithromycin. His potassium is elevated this afternoon but patient was started on sliding scale insulin and so I anticipate this to come down. We will recheck this later this evening with his BMP. Kidney function is stable. Will monitor patient's fluid status and patient may need additional Lasix but hopefully with gentle resuscitation and slowly increasing his sodium this will not be an issue. Patient is currently satting in the upper 90s on room air, no concern for respiratory issues at this time. Blood pressure is also stabilized as it was fairly elevated but most recent check was 136/89. For his alcoholism, CIWA scores will be monitored for withdrawal. Ativan to be given as needed with appropriate scores but otherwise will be withheld at this time. We will repeat CBC in the morning. Consistent carb diet ordered, will check sugars before meals at bedtime. Moderate sliding scale ordered. SCDs to be worn while in bed for DVT prophylaxis, nurse to call for questions or concerns. 75 minutes of critical care time spent on patient today during evaluation, acute care management, treatment plan development, and H&P written. - Assessment/Plan (1) Acute respiratory distress Problem: Acute (2) Acute pneumonia Problem: Acute (3) Chronic hyponatremia Problem: Acute (4) Diabetes Problem: Chronic Qualifiers: Diabetes mellitus type: type 2 Diabetes mellitus exterminator helper termite insulin use: with exterminator helper termite use Diabetes mellitus complication status: without complication Qualified Code(s): E11.9 - Type 2 diabetes mellitus without complications; Z79.4 - local company intermodal truck driver (current) use of insulin
[2021-01-01 14:08] LABS: Anion Gap 11.6 mmol/L (6.8-13.8); BUN/Creatinine Ratio 9.2 (9.0-21.6); Calcium * 8.2 mg/dL (7.9-10.9); Carbon Dioxide 24.4 mmol/L (24-32.6); Estimated Creat Clear 79.1
[2021-01-01] MEDS: NORMAL SALINE 1,000 ML IV PRN ×2 (14:28→16:04)
[2021-01-01] MEDS: INSULIN LISPRO 100 UNITS/ML VIAL SC SCH ×2 (17:22→20:56)
[2021-01-01] MEDS: SODIUM CHLORIDE 1 GM TABLET PO SCH (19:44)
[2021-01-01] MEDS: ROSUVASTATIN CALCIUM 5 MG TABLET PO SCH (20:56)
[2021-01-01 22:19] LABS: Anion Gap 9.1 mmol/L (6.8-13.8); BUN/Creatinine Ratio 9.8 (9.0-21.6); Calcium * 8.6 mg/dL (7.9-10.9); Carbon Dioxide 27.6 mmol/L (24-32.6); Estimated Creat Clear 84.9; Potassium 3.7 mmol/L (3.4-4.6)
[2021-01-02] MEDS: NORMAL SALINE 1,000 ML IV PRN ×3 (00:31→18:36)
[2021-01-02 07:21] LABS: Hematocrit 33.8 % (42.0-52.0); Hemoglobin 11.3 gm/dL (13.5-18.0); Mean Cell Volume 92.6 fl (78-100); Mean Corpuscular Hgb Conc 33.4 g/dl (32-36); Mean Platelet Volume 10.2 fl (8-11.3); Neutrophil # 4.9 K/mm3 (1.3-6.0); Neutrophil % 65.7 % (42-75.0); Platelet Count 128 K/mm3 (150-450); Red Blood Count 3.65 M/mm3 (4.7-6.0); Red Cell Distribution Width 13.6 % (11.5-14.0); White Blood Count 7.4 K/mm3 (4.0-10.5)
[2021-01-02 07:30] LABS: Anion Gap 8.6 mmol/L (6.8-13.8); BUN/Creatinine Ratio 9.5 (9.0-21.6); Calcium * 8.3 mg/dL (7.9-10.9); Carbon Dioxide 25.1 mmol/L (24-32.6); Estimated Creat Clear 98.7; Potassium 3.7 mmol/L (3.4-4.6)
[2021-01-02] MEDS: INSULIN LISPRO 100 UNITS/ML VIAL SC SCH ×4 (07:38→21:08)
[2021-01-02] MEDS ORDERED: ACETAMINOPHEN 325 MG TABLET PO PRN (08:34)
[2021-01-02] MEDS: METOPROLOL TARTRATE 25 MG TABLET PO SCH ×2 (08:53→21:07)
[2021-01-02] MEDS: metFORMIN HCL 500 MG TABLET PO SCH (08:53)
[2021-01-02] MEDS: GABAPENTIN 400 MG CAPSULE PO SCH ×3 (08:53→17:18)
[2021-01-02] MEDS: AZITHROMYCIN 250 MG TABLET PO SCH (08:54)
[2021-01-02] MEDS: LISINOPRIL 10 MG TABLET PO SCH (08:54)
[2021-01-02] MEDS: HEPARIN SODIUM,PORCINE 5,000 UNITS/ML VIAL SC SCH ×2 (08:56→21:11)
[2021-01-02] MEDS: SODIUM CHLORIDE 1 GM TABLET PO SCH ×2 (08:56→21:11)
[2021-01-02] MEDS: SILVER SULFADIAZINE 50 APPL JAR TP SCH (08:59)
[2021-01-02] MEDS ORDERED: SILVER SULFADIAZINE 25 APPL JAR TP SCH (09:00)
--- NOTE | 2021-01-02 12:03 | PN ---
Subjective - Date and Time Seen Date: 01/02/21 Time: 11:50 Subjective Narrative: Patient is awake alert oriented x3. He is on room air and saturating around 98 to 100%. He denies any withdrawal reactions. Objective - Review of Systems Generalized/Overall Review: Denies: Chills, Fever EENTM: Denies: Blurred Vision Respiratory: Denies: Cough, Shortness of Breath, Orthopnea Cardiac: Denies: Chest Pain, Edema, Palpitations Abdominal: Denies: Nausea, Vomiting, Abdominal Pain Genitourinary Symptoms: Denies: Urgency, Frequency Musculoskeletal Complaints: Denies: Joint Pain, Back Pain Neurological: Denies: Headache Skin: Denies: Lesions, Rash Endocrine: Denies: Intolerance to Cold, Intolerance to Heat Misc: All systems neg except as marked - Vitals Vitals: Last Vital Signs Temp 36.8 C 01/02/21 10:00 Pulse 79 01/02/21 10:00 Resp 18 01/02/21 10:00 BP 137/78 01/02/21 10:00 Pulse Ox 100 01/02/21 10:00 - Abnormal Lab Findings Abnormal Lab Findings: Abnormal Lab Results 01/01/21 01/01/21 01/01/21 Range/Units 13:30 13:32 22:08 RBC (4.7-6.0) M/mm3 Hgb (13.5-18.0) gm/dL Hct (42.0-52.0) % Plt Count (150-450) K/mm3 Immature Gran % (Auto) (0.001-0.429) % Immature Gran # (Auto) (0.000-0.0310) K/mm3 Sodium 121 L 128 L (132-142) mmol/L Plasma Sodium 124 L 128 L (130-142) mmol/L Potassium 5.0 H (3.4-4.6) mmol/L Chloride 90 L 95 L (97-106) mmol/L Random Glucose 293 H 113 H D (70-110) mg/dL Procalcitonin 1.48 H (0.05-0.50) ng/mL 01/02/21 01/02/21 Range/Units 07:11 07:11 RBC 3.65 L (4.7-6.0) M/mm3 Hgb 11.3 L (13.5-18.0) gm/dL Hct 33.8 L (42.0-52.0) % Plt Count 128 L (150-450) K/mm3 Immature Gran % (Auto) 0.50 H (0.001-0.429) % Immature Gran # (Auto) 0.04 H (0.000-0.0310) K/mm3 Sodium 125 L (132-142) mmol/L Plasma Sodium 125 L (130-142) mmol/L Potassium (3.4-4.6) mmol/L Chloride 95 L (97-106) mmol/L Random Glucose (70-110) mg/dL Procalcitonin (0.05-0.50) ng/mL - Exam Constitutional: Present: Alert, Oriented x3, Cooperative ENT Exam: Present: hearing grossly normal Neck: Present: supple. Absent: lymphadenopathy (R), lymphadenopathy (L) Respiratory: Present: decreased breath sounds, No rales, No wheezing Cardiovascular/Chest: Present: regular rate, rhythm, no JVD, no murmur Abdomen: Present: Normal bowel sounds, soft, nontender, nondistended Extremity: Present: no calf tenderness. Absent: lower extremity edema Assessment/Plan Plan Narrative: Dequan was admitted for chest pain and shortness of breath and was found to to be in acute respiratory failure hypoxemic with findings of diffuse pneumonitis on chest x-ray and also was found to be hyponatremic at 117. He was started on hypertonic saline solution and IV antibiotics. He went into acute respiratory distress more and was given IV Lasix. His sodium this morning is 125. He is now saturating 100% on room air. We will continue with the patient's current m edications and prior symptomatic treatment. We will recheck his sodium again in the morning and do a follow-up chest x-ray. - Problems/Diagnosis (1) Acute interstitial pneumonitis Problem: Acute (2) Acute respiratory failure with hypoxia Problem: Resolved Narrative: Resolved clinically (3) Chronic hyponatremia Problem: Acute Narrative: Moderate to severe acute on chronic mild hyponatremia. (4) Diabetes Problem: Chronic Qualifiers: Diabetes mellitus type: type 2 Diabetes mellitus halfway insulin use: w ith halfway use Diabetes mellitus complication status: without complication Qualified Code(s): E11.9 - Type 2 diabetes mellitus without complications; Z79.4 - intermediate project manager (current) use of insulin
[2021-01-02] MEDS: hydrALAZINE HCL 20 MG/ML VIAL IV PRN (19:51)
[2021-01-02] MEDS: ROSUVASTATIN CALCIUM 5 MG TABLET PO SCH (21:07)
[2021-01-02] MEDS: INSULIN GLARGINE,HUM.REC.ANLOG 100 UNITS/ML VIAL SC SCH (21:09)
[2021-01-02] MEDS ORDERED: FUROSEMIDE 10 MG/ML VIAL IV ONE (21:26)
[2021-01-02] MEDS ORDERED: FUROSEMIDE 10 MG/ML VIAL ONE (21:40)
[2021-01-03 06:49] LABS: Hematocrit 36.6 % (42.0-52.0); Hemoglobin 12.3 gm/dL (13.5-18.0); Mean Cell Volume 92.9 fl (78-100); Mean Corpuscular Hemoglobin 31.2 pg (27-31); Mean Corpuscular Hgb Conc 33.6 g/dl (32-36); Mean Platelet Volume 10.4 fl (8-11.3); Neutrophil # 4.9 K/mm3 (1.3-6.0); Neutrophil % 68.4 % (42-75.0); Platelet Count 147 K/mm3 (150-450); Red Blood Count 3.94 M/mm3 (4.7-6.0); Red Cell Distribution Width 13.5 % (11.5-14.0); White Blood Count 7.2 K/mm3 (4.0-10.5)
[2021-01-03 07:04] LABS: Anion Gap 11.8 mmol/L (6.8-13.8); BUN/Creatinine Ratio 10.9 (9.0-21.6); Calcium * 8.7 mg/dL (7.9-10.9); Carbon Dioxide 26.1 mmol/L (24-32.6); Estimated Creat Clear 102.6; Potassium 2.9 mmol/L (3.4-4.6)
[2021-01-03] MEDS: INSULIN LISPRO 100 UNITS/ML VIAL SC SCH ×4 (07:23→21:15)
[2021-01-03] MEDS: METOPROLOL TARTRATE 25 MG TABLET PO SCH ×3 (08:36→21:25)
[2021-01-03] MEDS: GABAPENTIN 400 MG CAPSULE PO SCH ×3 (08:36→17:28)
[2021-01-03] MEDS: LISINOPRIL 10 MG TABLET PO SCH (08:36)
[2021-01-03] MEDS: HEPARIN SODIUM,PORCINE 5,000 UNITS/ML VIAL SC SCH (08:37)
[2021-01-03] MEDS: SODIUM CHLORIDE 1 GM TABLET PO SCH ×2 (08:37→21:14)
[2021-01-03] MEDS: metFORMIN HCL 500 MG TABLET PO SCH (08:37)
[2021-01-03] MEDS: SILVER SULFADIAZINE 50 APPL JAR TP SCH (08:37)
[2021-01-03] MEDS: AZITHROMYCIN 250 MG TABLET PO SCH (08:44)
--- NOTE | 2021-01-03 09:17 | PN ---
Subjective - Date and Time Seen Date: 01/03/21 Time: 09:12 Subjective Narrative: Patient is awake alert oriented x3. A febrile. He says he is feeling a lot better this morning. The patient was having acute respiratory distress yesterday and we had to stop his IV fluids and gave him IV Lasix. His potassium is down this morning. Objective - Review of Systems Generalized/Overall Review: Denies: Chills, Fever EENTM: Denies: Blurred Vision Respiratory: Denies: Cough, Shortness of Breath, Orthopnea Cardiac: Denies: Chest Pain, Edema, Palpitations Abdominal: Denies: Nausea, Vomiting, Abdominal Pain Genitourinary Symptoms: Denies: Urgency, Frequency Musculoskeletal Complaints: Denies: Joint Pain Neurological: Denies: Anxiety, Depressed Skin: Denies: Lesions, Rash Endocrine: Denies: Intolerance to Cold, Intolerance to Heat Misc: All systems neg except as marked - Vitals Vitals: Last Vital Signs Temp 36.0 C 01/03/21 06:26 Pulse 83 01/03/21 08:36 Resp 18 01/03/21 06:26 BP 135/89 01/03/21 08:36 Pulse Ox 100 01/03/21 06:26 - Abnormal Lab Findings Abnormal Lab Findings: Abnormal Lab Results 12/31/20 01/03/21 01/03/21 Range/Units 21:40 06:31 06:31 RBC 3.94 L (4.7-6.0) M/mm3 Hgb 12.3 L (13.5-18.0) gm/dL Hct 36.6 L (42.0-52.0) % MCH 31.2 H (27-31) pg Plt Count 147 L (150-450) K/mm3 Basophils % 1.1 H (0.0-1.0) % Lymphocytes # 1.45 L (1.5-3.5) k/mm3 Sodium 131 L (132-142) mmol/L Potassium 2.9 L D (3.4-4.6) mmol/L Chloride 96 L (97-106) mmol/L Random Glucose 155 H D (70-110) mg/dL Serum Osmolality 270 L mOsm/kg - Exam Constitutional: Present: Alert, Oriented x3 ENT Exam: Present: hearing grossly normal Neck: Present: supple. Absent: lymphadenopathy (R), lymphadenopathy (L) Respiratory: Present: decreased breath sounds, No rales, No wheezing Cardiovascular/Chest: Present: regular rate, rhythm, no JVD, no murmur Abdomen: Present: Normal bowel sounds, soft, nontender, nondistended Extremity: Present: no calf tenderness. Absent: lower extremity edema Assessment/Plan Plan Narrative: Patient is feeling much better today. He had some wheezing and findings of wet lung last night. His IV fluids were stopped and he was given IV Lasix. His potassium is on the low side. His sodium has gone up to 131. His chest x-ray this morning is showing interval improvement. We will correct his hypokalemia and if sodium stabilizes he is for possible discharge tomorrow. - Problems/Diagnosis (1) Hypokalemia Problem: Acute Narrative: due to diuretic (2) Acute interstitial pneumonitis Problem: Acute (3) Acute respiratory failure with hypoxia Problem: Resolved (4) Chronic hyponatremia Problem: Acute (5) Diabetes Problem: Chronic Qualifiers: Diabetes mellitus type: type 2 Diabetes mellitus machine long goods helper insulin use: with machine long goods helper use Diabetes mellitus complication status: without complication Qualified Code(s): E11.9 - Type 2 diabetes mellitus without complications; Z79.4 - senior living (current) use of insulin
[2021-01-03] MEDS: POTASSIUM CHLORIDE 20 MEQ TABLET.SA PO SCH ×2 (09:43→17:28)
[2021-01-03] MEDS ORDERED: DILTIAZEM HCL 5 MG/ML VIAL IV ONE (18:02)
[2021-01-03 18:37] LABS: Anion Gap 13.8 mmol/L (6.8-13.8); BUN/Creatinine Ratio 8.3 (9.0-21.6); Calcium * 8.6 mg/dL (7.9-10.9); Carbon Dioxide 26.6 mmol/L (24-32.6); Estimated Creat Clear 85.6; Potassium 3.4 mmol/L (3.4-4.6); TSH * 0.755 uIU/mL (0.358-3.74)
[2021-01-03 18:39] LABS: Troponin I 3.985 ng/mL (0.00-0.10)
[2021-01-03] MEDS ORDERED: ASPIRIN 325 MG TABLET.DR PO ONE (18:58)
[2021-01-03] MEDS ORDERED: CLOPIDOGREL BISULFATE 75 MG TABLET PO ONE (18:59)
[2021-01-03] MEDS: ENOXAPARIN SODIUM 100 MG/ML SYRG SC SCH (19:13)
--- NOTE | 2021-01-03 19:55 | PN ---
Progess Note - Interim Date: 01/03/21 Time: 19:45 Narrative: 01/03/21 19:45 Dequan had an episode of atrial fibrillation with rapid ventricular response in the 150s, left bundle branch block which was not different from his admission EKG. He was asymptomatic and did not feel any palpitations or chest pain. Earlier this morning the patient was hypokalemic with a potassium of 2.9 which was replenished with 2 doses of 40 M EQ of Klor-Con. Initially thought to be electrolyte induced I ordered for a stat BMP, TSH and also troponin and gave him Cardizem 8 mg IV bolus. His sodium came back as 132 with a potassium of 3.4. His TSH was still within normal limits however his troponin was elevated at 3.89. When initially informed I did give the patient aspirin, amiodarone, and Lovenox. I discussed the case with Dr. Chaudhry, burn crew member technologies division chair at [facility], for possible transfer as I am not sure if this was acute coronary syndrome ( no chest pain but some diabetics can have silent NC/ patient has LBBB which can alter EKG findings) versus increased demand ischemia. He feels the patient just had increased demand ischemia. He recommends to put patient on amiodarone and anticoagulate patient, stop his Plavix and aspirin. He also recommends a stress test on the patient as an outpatient. I told the patient that he is back in regular sinus rhythm after the IV Cardizem bolus and he said not to do the amiodarone anymore. He says he sees this all the time in their practice.
[2021-01-03] MEDS ORDERED: METOPROLOL SUCCINATE 25 MG TABLET.SA PO ONE (20:00)
[2021-01-03] MEDS: ROSUVASTATIN CALCIUM 5 MG TABLET PO SCH (21:14)
[2021-01-03] MEDS: INSULIN GLARGINE,HUM.REC.ANLOG 100 UNITS/ML VIAL SC SCH (21:17)
[2021-01-04 06:58] LABS: Anion Gap 13.1 mmol/L (6.8-13.8); BUN/Creatinine Ratio 11.8 (9.0-21.6); Calcium * 8.5 mg/dL (7.9-10.9); Carbon Dioxide 22.9 mmol/L (24-32.6); Estimated Creat Clear 111.4
[2021-01-04] MEDS: INSULIN LISPRO 100 UNITS/ML VIAL SC SCH ×2 (07:31→11:50)
[2021-01-04] MEDS: ENOXAPARIN SODIUM 100 MG/ML SYRG SC SCH (07:31)
[2021-01-04] MEDS: METOPROLOL TARTRATE 25 MG TABLET PO SCH (08:44)
[2021-01-04] MEDS: metFORMIN HCL 500 MG TABLET PO SCH (08:44)
[2021-01-04] MEDS: LISINOPRIL 10 MG TABLET PO SCH (08:44)
[2021-01-04] MEDS: SODIUM CHLORIDE 1 GM TABLET PO SCH (08:44)
[2021-01-04] MEDS: GABAPENTIN 400 MG CAPSULE PO SCH ×2 (08:44→13:41)
[2021-01-04] MEDS: AZITHROMYCIN 250 MG TABLET PO SCH (09:56)
--- NOTE | 2021-01-04 12:46 | DS ---
(1) Acute respiratory distress Problem: Acute (2) Acute pneumonia Problem: Acute (3) Chronic hyponatremia Problem: Acute (4) Diabetes Problem: Chronic Qualifiers: Diabetes mellitus type: type 2 Diabetes mellitus long term care phlebotomist insulin use: with long term care phlebotomist use Diabetes mellitus complication status: without complication Qualified Code(s): E11.9 - Type 2 diabetes mellitus without complications; Z79.4 - [facility] (current) use of insulin (5) Atrial fib/flutter, transient Problem: Acute (6) Hypokalemia Problem: Acute Date of Discharge:: 01/04/21 Hospital Course: 55-year-old male with history of chronic alcoholism, hypertension presented to the hospital for shortness of breath and respiratory distress. Initially satting in the 70s upon arrival. Patient found to have pneumonitis versus possible multilobar pneumonia. Started on azithromycin and Rocephin. Sodium initially was 118 upon arrival. Patient sodium responded well to replacement therapy including IV fluids as well as salt tablets. Upon discharge his sodium was at 130. Discussed this with patient and it is likely due to his chronic alcoholism which he states his understanding to. Breathing was much better though he was overloaded on fluid twice and had to be diuresed. Potassium initially dropped with diuresis but responded to replacement therapy as well. Upon discharge potassium was 4.0. His vital signs been stable and he feels great today. Patient will need to follow with his PCP in 1 week for repeat BMP. No further antibiotics needed as he is complete a 5-day course of both Rocephin and azithromycin. White count was always normal. Elevated procalcitonin at 1.48. Of note patient did go into A. fib with RVR for short time which responded to IV Cardizem and oral metoprolol. Currently back in a regular rate and his heart rate is within normal limits. He never had chest pain though he did have elevated troponins. Cardiology was consulted from [facility] who recommended conservative measures at this time t as hey felt like his elevated troponins (3.98, 3.57) was due to ischemia secondary to the A. fib. Patient will need outpatient work-up for his heart disease. EKG unchanged from his ER EKG which did show left bundle branch block but no ischemic changes. Patient be discharged home on metoprolol. His vital signs been stable otherwise and has been afebrile while here. Patient will be discharged home on salt tablets to be taken once daily until he can get back in for repeat BMP. 1 hour critical care time spent with patient during his examination, review of his records, changes in tx plan, scheduling follow up, and completing discharge summary. Procedures Performed: none Results and Findings: Pending Mircobiology Results 12/31/20 22:20 Blood Blood Culture - Preliminary NO GROWTH AFTER 48 HOURS 12/31/20 21:40 Blood Blood Culture - Preliminary NO GROWTH AFTER 48 HOURS Lab Pending Results 12/31/20 21:40: WBC 8.5, RBC 4.21 L, Hgb 13.2 L, Hct 40.2 L, MCV 95.5, MCH 31.4 H, MCHC 32.8, RDW 13.4, Plt Count 229, MPV 11.0, Immature Gran % (Auto) 0.60 H, Immature Gran # (Auto) 0.05 H, Neutrophils % 57.7, Lymphocytes % 25.6, Monocytes % 8.4, Eosinophils % 5.2 H, Basophils % 2.5 H, Nucleated RBC % 0.0, Neutrophils # 4.9, Lymphocytes # 2.16, Monocytes # 0.7, Eosinophils # 0.4, Absolute Basophils 0.2 H 12/31/20 21:40: Sodium 118 L* D, Plasma Sodium 123 L, Potassium 4.2, Chloride 85 L, Carbon Dioxide 16.9 L, Anion Gap 20.3 H, BUN 11, Creatinine 1.50 H D, Est GFR (Non-Af Amer) 52 L D, BUN/Creatinine Ratio 7.3 L, Random Glucose 429 H, Calcium 8.3, Calcium Adj for Albumin 8.4, Total Bilirubin 1.2 H, AST 37, ALT 35, Alkaline Phosphatase 124, Troponin I 0.069, B-Natriuretic Peptide 2116 H, Total Protein 7.2, Albumin 3.5, Ethyl Alcohol Less than 3.0 12/31/20 21:40: Lactic Acid, Venous 10.9 H* 12/31/20 21:40: PT 11.6 H, INR (Anticoag Therapy) 1.12 H, PTT ([place]) 27.5 12/31/20 21:40: Magnesium 1.6, TSH (Reflex) 2.221 12/31/20 21:40: Serum Osmolality 270 L 12/31/20 21:44: pCO2 35.1, pO2 58.8 L, HCO3 13.6 L, Total CO2 14.7 L, Base Excess -13.3 L, ABG pH 7.21 L, ABG O2 Sat (Measured) 85.0 L 12/31/20 21:59: SARS-CoV-2 (PCR) Not detected 12/31/20 23:43: Sodium 118 L* 01/01/21 01:10: Lactic Acid, Venous 2.5 H* 01/01/21 01:10: Sodium 120 L 01/01/21 03:30: Ur Random Sodium 17 L 01/01/21 03:30: Urine Osmolality 430 01/01/21 03:30: Urine Color Yellow, Urine Appearance Clear, Urine pH 6.0, Ur Specific [place] 1.015, Urine Protein Negative, Urine Glucose (UA) >=1000 H, Urine Ketones Negative, Urine Blood Negative, Urine Nitrate Negative, Urine Bilirubin Negative, Urine Urobilinogen Normal, Ur Leukocyte Esterase Negative, Urine RBC None seen, Urine WBC None seen, Ur Epithelial Cells None seen, Urine Bacteria None seen, Urine Culture Comments No culture indicated 01/01/21 03:30: Urine Opiates Screen Negative, Barbiturate Screen Negative, Ur Phencyclidine Scrn Negative, Urine Amphetamine Negative, U Benzodiazepines Scrn Negative, Urine Cocaine Screen Negative, Urine Marijuana (THC) Negative 01/01/21 08:02: Sodium 124 L, Plasma Sodium 127 L, Potassium 4.2, Chloride 90 L, Carbon Dioxide 23.5 L, Anion Gap 14.7 H, BUN 9, Creatinine 1.17, Est GFR (Non-Af Amer) 69 D, BUN/Creatinine Ratio 7.7 L, Random Glucose 259 H D, Calcium 8.2 01/01/21 13:30: Sodium 121 L, Plasma Sodium 124 L, Potassium 5.0 H, Chloride 90 L, Carbon Dioxide 24.4, Anion Gap 11.6, BUN 12, Creatinine 1.31, Est GFR (Non-Af Amer) 61, BUN/Creatinine Ratio 9.2, Random Glucose 293 H, Calcium 8.2 01/01/21 13:32: Procalcitonin 1.48 H 01/01/21 22:08: Sodium 128 L, Plasma Sodium 128 L, Potassium 3.7 D, Chloride 95 L, Carbon Dioxide 27.6, Anion Gap 9.1, BUN 12, Creatinine 1.22, Est GFR (Non-Af Amer) 66, BUN/Creatinine Ratio 9.8, Random Glucose 113 H D, Calcium 8.6 01/02/21 07:11: Sodium 125 L, Plasma Sodium 125 L, Potassium 3.7, Chloride 95 L, Carbon Dioxide 25.1, Anion Gap 8.6, BUN 10, Creatinine 1.05, Est GFR (Non-Af Amer) 78, BUN/Creatinine Ratio 9.5, Random Glucose 96, Calcium 8.3 01/02/21 07:11: WBC 7.4, RBC 3.65 L, Hgb 11.3 L, Hct 33.8 L, MCV 92.6, MCH 31.0, MCHC 33.4, RDW 13.6, Plt Count 128 L, MPV 10.2, Immature Gran % (Auto) 0.50 H, Immature Gran # (Auto) 0.04 H, Neutrophils % 65.7, Lymphocytes % 24.1, Monocytes % 8.1, Eosinophils % 0.9, Basophils % 0.7, Nucleated RBC % 0.0, Neutrophils # 4.9, Lymphocytes # 1.78, Monocytes # 0.6, Eosinophils # 0.1, Absolute Basophils 0.1 01/03/21 06:31: WBC 7.2, RBC 3.94 L, Hgb 12.3 L, Hct 36.6 L, MCV 92.9, MCH 31.2 H, MCHC 33.6, RDW 13.5, Plt Count 147 L, MPV 10.4, Immature Gran % (Auto) 0.30, Immature Gran # (Auto) 0.02, Neutrophils % 68.4, Lymphocytes % 20.1, Monocytes % 7.6, Eosinophils % 2.5, Basophils % 1.1 H, Nucleated RBC % 0.0, Neutrophils # 4.9, Lymphocytes # 1.45 L, Monocytes # 0.6, Eosinophils # 0.2, Absolute Basophils 0.1 01/03/21 06:31: Sodium 131 L, Plasma Sodium 132, Potassium 2.9 L D, Chloride 96 L, Carbon Dioxide 26.1, Anion Gap 11.8, BUN 11, Creatinine 1.01, Est GFR (Non-Af Amer) 82, BUN/Creatinine Ratio 10.9, Random Glucose 155 H D, Calcium 8.7 01/03/21 18:12: Sodium 132, Plasma Sodium 133, Potassium 3.4, Chloride 95 L, Carbon Dioxide 26.6, Anion Gap 13.8, BUN 10, Creatinine 1.21, Est GFR (Non-Af Amer) 66, BUN/Creatinine Ratio 8.3 L, Random Glucose 178 H, Calcium 8.6, Troponin I 3.985 H*, TSH 0.755 01/04/21 01:15: Troponin I 3.579 H* 01/04/21 06:30: Sodium 130 L, Plasma Sodium 131, Potassium 4.0, Chloride 98, Carbon Dioxide 22.9 L, Anion Gap 13.1, BUN 11, Creatinine 0.93, Est GFR (Non-Af Amer) 90 D, BUN/Creatinine Ratio 11.8, Random Glucose 156 H, Calcium 8.5 Discharge Location: Home Disposition: Home self-care Condition: Stable Discharge Activity: Activity as tolerated Discharge Diet: Low fat/chol Referrals: Sandy Pickens MD [Primary Care Provider] - One Week Prescriptions (Any new or edited meds): Sodium Chloride 1 gm PO BID #30 tab Transmission Status: Pending to [facility] Complete Home Medications List: Complete Home Medication List: Acetaminophen [Tylenol] 650 mg PO QID PRN 05/04/17 Ibuprofen 200 - 400 mg PO QID 05/04/17 alcohol swabs See Rx Instructions TP .COMPLEX #200 ea 05/21/18 aspirin 81 mg chewable tablet 81 mg PO DAILY #90 tab 05/21/18 blood-glucose meter See Dose Instructions .ROUTE .MEDSUPPLY #1 ea 05/21/18 lancets 28 gauge See Dose Instructions .ROUTE .MEDSUPPLY #200 ea 05/21/18 insulin glargine 100 unit/mL subcutaneous solution 15 unit SUBCUT DAILY #10 ml 04/17/20 metformin 500 mg tablet 500 mg PO DAILY #180 tab 04/20/20 Naproxen Sodium 550 mg PO BID #30 tab 06/11/20 metoprolol tartrate 25 mg tablet 25 mg PO BID #180 tab 08/10/20 blood sugar diagnostic See Rx Instructions .ROUTE .COMPLEX #100 unknown measurement unit code: strip 11/04/20 lisinopril 10 mg tablet 10 mg PO DAILY #90 tab 11/04/20 atorvastatin 10 mg tablet 10 mg PO DAILY #90 tab 12/16/20 gabapentin 400 mg capsule 400 mg PO TID #180 cap 12/16/20 insulin syringe-needle U-100 1 mL 31 gauge x 02/14" See Dose Instructions .ROUTE .MEDSUPPLY #100 ea 12/16/20 silver sulfadiazine 1 % topical cream 1 applic TP DAILY #25 g 12/28/20 Sodium Chloride 1 gm PO BID #30 tab 01/04/21 Forms: Patient Portal Registration
[2021-01-04] MEDS: SILVER SULFADIAZINE 50 APPL JAR TP SCH (13:43)
[2021-01-04 14:05] VITALS: BP 135/62
== END 2021-01-04 14:19 | disposition home or self-care (01) | DRG 196 ==
LOC: ER 21:25 → MS 23:47
PROVIDERS: ADMIT Family Medicine; ATTEND Family Medicine
DX: I48.91 Unspecified atrial fibrillation; E87.6 Hypokalemia; E11.22 Type 2 diabetes mellitus with diabetic chronic kidney disease; J84.114 Acute interstitial pneumonitis; N18.32 Chronic kidney disease, stage 3b; E87.1 Hypo-osmolality and hyponatremia; Z86.73 Personal history of transient ischemic attack (TIA), and cerebral infarction without residual deficits; E43 Unspecified severe protein-calorie malnutrition; I12.9 Hypertensive chronic kidney disease with stage 1 through stage 4 chronic kidney disease, or unspecified chronic kidney disease; Z68.24 Body mass index [BMI] 24.0-24.9, adult; J96.01 Acute respiratory failure with hypoxia; F10.20 Alcohol dependence, uncomplicated; I44.7 Left bundle-branch block, unspecified; J96.02 Acute respiratory failure with hypercapnia; Z79.4 Long term (current) use of insulin; D64.9 Anemia, unspecified